=== PATIENT | female | born 1945 | race Asian ===

== ENCOUNTER 2024-09-21 19:15 | Emergency (ER) | payer MEDICARE, OTHER ==
[~2024-09-21] VITALS: Ht 157.5 cm; Wt 56.7 kg
[2024-09-21] MEDS ORDERED: AZIT250T13 PO (21:10)
[2024-09-21] MEDS ORDERED: AZITHROMYCIN 250 MG TABLET ONE (21:10)
[2024-09-21] MEDS: AZITHROMYCIN 250 MG TABLET PO ONE (21:11)
[2024-09-22 00:26] VITALS: BP 119/69; TEMP 98.1; O2SAT 97
== END 2024-09-22 00:34 ==
LOC: ER 19:28 → EDBD 19:28 → ER 09-22 00:34
DX: R05.9 Cough, unspecified (principal); I11.0 Hypertensive heart disease with heart failure; I50.9 Heart failure, unspecified
CPT/HCPCS: 71045-TC

== ENCOUNTER 2024-10-04 08:38 | Inpatient (IN) | payer MEDICARE, OTHER ==
[~2024-10-04] VITALS: Ht 152.4 cm; Wt 53.1 kg
[2024-10-04] VITALS (7 sets, daily range): BP systolic 99–121; BP diastolic 71–84; TEMP 98.1–98.2; O2SAT 91–100
[~2024-10-04 08:38] MED LIST: AZIT250T13 PO
[2024-10-04] MEDS: IV NS 0.9% 1,000 ML BAG IV ONE (09:00)
[2024-10-04] MEDS: CEFEPIME 1 GM in IV D5W 50 ML IV ONE (09:10)
[2024-10-04 09:20] LABS: BASOPHILS % (AUTO) 0.5 % (0.0-2.0); EOSINOPHILS # (AUTO) 0.1 K/uL (0.0-0.7); HEMATOCRIT 37 % (33-45); HEMOGLOBIN 12.1 g/dL (11.5-14.8); LYMPHOCYTES # (AUTO) 0.6 K/uL (0.8-4.8); LYMPHOCYTES % (AUTO) 8.6 % (20.0-44.0); MEAN CORPUSCULAR HEMOGLOBIN 31 PG (26.0-33.0); MEAN CORPUSCULAR HGB CONC 32 g/dl (31.0-36.0); MEAN CORPUSCULAR VOLUME 95 fL (82-100); MONOCYTES # (AUTO) 0.6 K/uL (0.1-1.30); MONOCYTES % (AUTO) 8.2 % (2.0-12.0); NEUTROPHILS # (AUTO) 5.6 K/uL (1.8-8.9); NEUTROPHILS % (AUTO) 81.7 % (43.0-81.0); PLATELET COUNT (AUTO) 233 K/uL (150-450); RED BLOOD CELL COUNT(AUTO) 3.92 MIL/uL (4.0-5.2); RED CELL DISTRIBUTION WIDTH 14.2 % (11.5-15.0); WHITE BLOOD COUNT (AUTO) 6.8 K/uL (4.3-11.0)
[2024-10-04 09:22] LABS: CALCIUM, SERUM 8.8 mg/dL (8.5-10.1); CARBON DIOXIDE 35 mmol/L (21-32); CHLORIDE 101 mmol/L (98-107); CREATININE 0.5 mg/dL (0.6-1.3); GLUCOSE 134 mg/dL (74-106); POTASSIUM 3.8 mmol/L (3.5-5.1); SODIUM SERUM 140 mmol/L (136-145); UREA NITROGEN, BLOOD 22 mg/dL (7-18)
[2024-10-04 09:24] LABS: INR 1.04 (0.91-1.10); PARTIAL THROMBOPLASTIN TIME 25.9 SEC (24.3-34.3)
[2024-10-04 09:31] LABS: LACTIC ACID 1.3 mmol/L (0.4-2.0)
[2024-10-04 09:32] LABS: APPEARANCE,URINE CLEAR (CLEAR); BILIRUBIN,URINE NEGATIVE (NEGATIVE); BLOOD, URINE NEGATIVE Ery/uL (NEGATIVE); COLOR,URINE YELLOW (YELLOW); KETONES,URINE NEGATIVE (NEGATIVE); LEUKOCYTE ESTERASE ,URINE NEGATIVE (NEGATIVE); NITRITE, URINE NEGATIVE (NEGATIVE); PROTEIN,URINE TRACE mg/dl (NEGATIVE); UGLUCOSE NEGATIVE (NEGATIVE); UROBILINOGEN,URINE 0.2 EU/dL (0.2)
[2024-10-04 09:39] LABS: ALANINE AMINOTRANSFERASE 50 U/L (12-78); ALBUMIN 2.5 g/dL (3.4-5.0); ALKALINE PHOSPHATASE 103 U/L (46-116); ASPARTATE AMINOTRANSFERASE 40 U/L (15-37); BILIRUBIN,DIRECT 0.1 mg/dL (0.0-0.2); BILIRUBIN,TOTAL 0.4 mg/dL (0.2-1.0); NT-PRO BNP 1335 pg/mL (0-125); TOTAL PROTEIN, SERUM 6.1 g/dL (6.4-8.2)
[2024-10-04] MEDS ORDERED: IOHEXOL-350 100 ML VIAL IV ONE (09:54)
[2024-10-04] MEDS ORDERED: IV NS 0.9% 250 ML IV ONE (09:54)
[2024-10-04] MEDS ORDERED: CT SWABBABLE VALVE TRANS SET 1 EA INFUS.SET MC ONE (09:54)
[2024-10-04 10:04] LABS: ADD URINE CULTURE NO; BACTERIA,URINE Rare /HPF (None Seen); WBC,URINE 0-2 /HPF (0-3)
[2024-10-04 10:05] LABS: SQUAMOUS EPITHELIAL CELL,UR 0-2 /HPF (None Seen)
[2024-10-04] MEDS ORDERED: BISA10SU11 RC (12:28)
[2024-10-04] MEDS ORDERED: ATOR80TA PO (12:28)
[2024-10-04] MEDS ORDERED: ACET325T53 PO (12:28)
[2024-10-04] MEDS ORDERED: ACET-73 PO (12:28)
[2024-10-04] MEDS ORDERED: IPRA3AMP23 IH (12:28)
[2024-10-04] MEDS ORDERED: MAGN400O6 PO (12:28)
[2024-10-04] MEDS ORDERED: ASPI-1420 PO (12:28)
[2024-10-04] MEDS ORDERED: LEVO750T46 PO (12:28)
[2024-10-04] MEDS: IV NS 0.9% 1,000 ML IV PRN (12:58)
[2024-10-04] MEDS ORDERED: ONDANSETRON HCL/PF 4 MG/2 ML VIAL IVP PRN (13:00)
[2024-10-04] MEDS ORDERED: MAG HYDROX/AL HYDROX/SIMETH 30 ML UDC PO PRN (13:00)
[2024-10-04] MEDS ORDERED: ZOLPIDEM TARTRATE 5 MG TABLET PO PRN (13:00)
[2024-10-04] MEDS ORDERED: MAGNESIUM HYDROXIDE 30 ML UDC PO PRN (13:00)
[2024-10-04] MEDS: MEROPENEM 500 MG in IV NS 0.9% 50 ML IV SCH (13:19)
[2024-10-04] MEDS: ENOXAPARIN SODIUM 40 MG/0.4 ML DISP.SYRIN SQ SCH (13:20)
[2024-10-04] MEDS: VANCOMYCIN HCL 1.25 GM in IV D5W 250 ML IV ONE (14:10)
[2024-10-04] MEDS: ACETAMINOPHEN 325 MG TABLET PO PRN (17:30)
[2024-10-04] MEDS: IPRATROPIUM NEB FS 0.5 MG/2.5 ML AMPUL.NEB NEB PRN (20:01)
[2024-10-04] MEDS: ALBUTEROL FS 2.5 MG/0.5 ML VIAL.NEB NEB PRN (20:01)
[2024-10-05] VITALS (10 sets, daily range): BP systolic 109–130; BP diastolic 73–87; TEMP 97.7–98.4; O2SAT 95–100
[2024-10-05] MEDS: VANCOMYCIN 750 MG in IV D5W 250 ML IV SCH (01:23)
[2024-10-05 07:45] LABS: BASOPHILS % (AUTO) 0.5 % (0.0-2.0); EOSINOPHILS # (AUTO) 0.1 K/uL (0.0-0.7); EOSINOPHILS % (AUTO) 1.5 % (0.0-6.0); HEMATOCRIT 34 % (33-45); HEMOGLOBIN 11.2 g/dL (11.5-14.8); LYMPHOCYTES # (AUTO) 0.6 K/uL (0.8-4.8); MEAN CORPUSCULAR HEMOGLOBIN 31 PG (26.0-33.0); MEAN CORPUSCULAR HGB CONC 33 g/dl (31.0-36.0); MEAN CORPUSCULAR VOLUME 94 fL (82-100); MONOCYTES # (AUTO) 0.6 K/uL (0.1-1.30); MONOCYTES % (AUTO) 10.8 % (2.0-12.0); NEUTROPHILS # (AUTO) 4.5 K/uL (1.8-8.9); NEUTROPHILS % (AUTO) 77.2 % (43.0-81.0); PLATELET COUNT (AUTO) 243 K/uL (150-450); RED BLOOD CELL COUNT(AUTO) 3.63 MIL/uL (4.0-5.2); RED CELL DISTRIBUTION WIDTH 13.9 % (11.5-15.0); WHITE BLOOD COUNT (AUTO) 5.9 K/uL (4.3-11.0)
[2024-10-05 07:56] LABS: ABG PCO2 50.3 mmHg (32.0-45.0); ABG PH 7.404 (7.350-7.450); ABG PO2 101.2 mmHg (83.0-108.0); ABG TOTAL HEMOGLOBIN 11.7 G/dL (12.0-16.0); COHb 0.2 % (0.5-1.5); MetHb 0.2 % (0.0-1.5); O2Hb 96.6 % (94.0-97.0); SITE, ABG RIGHT RADIAL
[2024-10-05 07:57] LABS: CALCIUM, SERUM 8.3 mg/dL (8.5-10.1); CREATININE 0.3 mg/dL (0.6-1.3); MAGNESIUM 1.9 mg/dL (1.8-2.4); PHOSPHORUS 2.7 mg/dL (2.5-4.9); POTASSIUM 3.8 mmol/L (3.5-5.1)
[2024-10-05] MEDS: PANTOPRAZOLE 40 MG TABLET.DR PO SCH (08:16)
[2024-10-05 08:20] LABS: THYROID STIMULATING HORMONE 7.2 uIU/mL (0.358-3.74)
[2024-10-05] MEDS: MEROPENEM 1 G in IV NS 0.9% 100 ML IV SCH (16:54)
[2024-10-06] VITALS (8 sets, daily range): BP systolic 122–146; BP diastolic 80–89; TEMP 97.7–98.6; O2SAT 93–100
[2024-10-06 08:13] LABS: BASOPHILS % (AUTO) 0.6 % (0.0-2.0); EOSINOPHILS # (AUTO) 0.1 K/uL (0.0-0.7); EOSINOPHILS % (AUTO) 1.1 % (0.0-6.0); HEMATOCRIT 35 % (33-45); HEMOGLOBIN 11.6 g/dL (11.5-14.8); LYMPHOCYTES # (AUTO) 0.5 K/uL (0.8-4.8); LYMPHOCYTES % (AUTO) 7.4 % (20.0-44.0); MEAN CORPUSCULAR HEMOGLOBIN 31 PG (26.0-33.0); MEAN CORPUSCULAR HGB CONC 33 g/dl (31.0-36.0); MEAN CORPUSCULAR VOLUME 94 fL (82-100); MONOCYTES # (AUTO) 0.7 K/uL (0.1-1.30); MONOCYTES % (AUTO) 10.7 % (2.0-12.0); NEUTROPHILS # (AUTO) 5.2 K/uL (1.8-8.9); NEUTROPHILS % (AUTO) 80.2 % (43.0-81.0); PLATELET COUNT (AUTO) 251 K/uL (150-450); RED BLOOD CELL COUNT(AUTO) 3.75 MIL/uL (4.0-5.2); RED CELL DISTRIBUTION WIDTH 13.9 % (11.5-15.0); WHITE BLOOD COUNT (AUTO) 6.5 K/uL (4.3-11.0)
[2024-10-06 08:34] LABS: ALBUMIN 2.4 g/dL (3.4-5.0); BILIRUBIN,TOTAL 0.4 mg/dL (0.2-1.0); CALCIUM, SERUM 8.5 mg/dL (8.5-10.1); CREATININE 0.3 mg/dL (0.6-1.3); MAGNESIUM 1.7 mg/dL (1.8-2.4); PHOSPHORUS 2.4 mg/dL (2.5-4.9); POTASSIUM 3.6 mmol/L (3.5-5.1); TOTAL PROTEIN, SERUM 5.9 g/dL (6.4-8.2)
[2024-10-06] MEDS: Z GUARD REMEDY 4 OZ OINT TP PRN (12:34)
[2024-10-06] MEDS: MAGNESIUM OXIDE 400 MG TABLET PO ONE (12:34)
[2024-10-06] MEDS: NEUTRA PHOS 1 POWD.PACKET PO ONE (17:11)
[2024-10-06] MEDS: VANCOMYCIN 750 MG in IV D5W 250 ML IV SCH (20:24)
[2024-10-07] VITALS: BP 131/84; TEMP 98.1; O2SAT 100
[2024-10-07 04:00] VITALS: BP 144/87; TEMP 97.9; O2SAT 95
[2024-10-07 07:35] LABS: BASOPHILS % (AUTO) 0.7 % (0.0-2.0); EOSINOPHILS # (AUTO) 0.1 K/uL (0.0-0.7); EOSINOPHILS % (AUTO) 1.2 % (0.0-6.0); HEMATOCRIT 35 % (33-45); HEMOGLOBIN 11.3 g/dL (11.5-14.8); LYMPHOCYTES # (AUTO) 0.5 K/uL (0.8-4.8); LYMPHOCYTES % (AUTO) 8.4 % (20.0-44.0); MEAN CORPUSCULAR HEMOGLOBIN 30 PG (26.0-33.0); MEAN CORPUSCULAR HGB CONC 32 g/dl (31.0-36.0); MEAN CORPUSCULAR VOLUME 95 fL (82-100); MONOCYTES # (AUTO) 0.5 K/uL (0.1-1.30); MONOCYTES % (AUTO) 8.7 % (2.0-12.0); NEUTROPHILS # (AUTO) 4.9 K/uL (1.8-8.9); PLATELET COUNT (AUTO) 251 K/uL (150-450); RED BLOOD CELL COUNT(AUTO) 3.72 MIL/uL (4.0-5.2); RED CELL DISTRIBUTION WIDTH 13.9 % (11.5-15.0)
[2024-10-07 07:47] LABS: CALCIUM, SERUM 8.3 mg/dL (8.5-10.1); CREATININE 0.3 mg/dL (0.6-1.3); POTASSIUM 3.7 mmol/L (3.5-5.1)
[2024-10-07 08:00] VITALS: BP 140/87; TEMP 97.9; O2SAT 100
[2024-10-07 12:00] VITALS: BP 118/74; TEMP 97.9; O2SAT 94
[2024-10-07] MEDS ORDERED: NEUTRA PHOS 1 POWD.PACKET PO ONE (16:00)
[2024-10-08] MEDS ORDERED: MERO1VIA23 IV (08:30)
[2024-10-08] MEDS ORDERED: VANC500V IV (08:30)
== END 2024-10-07 17:35 | DRG 177 ==
LOC: ER 08:43 → TELE1 10:56 → TELE-TD 12:16 → TELE1 10-05 09:14
DX: J15.69 Pneumonia due to other Gram-negative bacteria (principal); I21.A1 Myocardial infarction type 2; J96.01 Acute respiratory failure with hypoxia; E44.0 Moderate protein-calorie malnutrition; I11.0 Hypertensive heart disease with heart failure; I50.9 Heart failure, unspecified; F03.90 Unspecified dementia, unspecified severity, without behavioral disturbance, psychotic disturbance, mood disturbance, and anxiety; F09 Unspecified mental disorder due to known physiological condition; E88.09 Other disorders of plasma-protein metabolism, not elsewhere classified; R79.89 Other specified abnormal findings of blood chemistry; Z79.51 Long term (current) use of inhaled steroids; Z79.82 Long term (current) use of aspirin; Z79.899 Other long term (current) drug therapy
CPT/HCPCS: 36415; 71045-TC; 80048-TC; 80053-TC; 80061-TC; 80076-TC; 80202-TC; 81001; 83605-TC; 83735-TC; 83880; 84100-TC; 84443-TC; 84484-TC; 85025-TC; 85730-TC; 87040-TC; 87081-TC; 87086-TC; 92526; 92611-TC; 93307-TC; 94760-TC; 94799-TC; 97110-TC; 97116-TC; 97530-TC; A4223; G0378; J0692; J1650; J2185; J3371; J3490; J7030; J7050; J7060; Q9967

== ENCOUNTER 2024-10-10 06:01 | Inpatient (IN) | payer MEDICARE, OTHER ==
[2024-10-10] VITALS (11 sets, daily range): BP systolic 108–109; BP diastolic 74–80; TEMP 97.7–98.3; O2SAT 94–100
[~2024-10-10] VITALS: Ht 157.5 cm; Wt 59.0 kg
[~2024-10-10 06:01] MED LIST changes: +ACET-73 PO; +ACET325T53 PO; +ASPI-1420 PO; +ATOR80TA PO; -AZIT250T13 PO; +BISA10SU11 RC; +IPRA3AMP23 IH; +LEVO750T46 PO; +MAGN400O6 PO; +MERO1VIA23 IV; +VANC500V IV
[2024-10-10] MEDS: IV NS 0.9% 500 ML IV ONE (06:26)
[2024-10-10] MEDS ORDERED: predniSONE 20 MG TABLET ONE (06:26)
[2024-10-10] MEDS: predniSONE 20 MG TABLET PO ONE (06:26)
[2024-10-10] MEDS: IPRATROPIUM NEB FS 0.5 MG/2.5 ML AMPUL.NEB NEB ONE (06:29)
[2024-10-10] MEDS: ALBUTEROL FS 2.5 MG/3 ML VIAL.NEB NEB ONE (06:29)
[2024-10-10] MEDS ORDERED: IPRATROPIUM NEB FS 0.5 MG/2.5 ML AMPUL.NEB ONE (06:33)
[2024-10-10] MEDS ORDERED: ALBUTEROL FS 2.5 MG/3 ML VIAL.NEB ONE (06:33)
[2024-10-10 06:44] LABS: BASOPHILS % (AUTO) 0.7 % (0.0-2.0); EOSINOPHILS # (AUTO) 0.1 K/uL (0.0-0.7); EOSINOPHILS % (AUTO) 0.8 % (0.0-6.0); HEMATOCRIT 40 % (33-45); HEMOGLOBIN 13.1 g/dL (11.5-14.8); LYMPHOCYTES # (AUTO) 0.8 K/uL (0.8-4.8); LYMPHOCYTES % (AUTO) 11.6 % (20.0-44.0); MEAN CORPUSCULAR HEMOGLOBIN 31 PG (26.0-33.0); MEAN CORPUSCULAR HGB CONC 33 g/dl (31.0-36.0); MEAN CORPUSCULAR VOLUME 95 fL (82-100); MONOCYTES # (AUTO) 0.4 K/uL (0.1-1.30); MONOCYTES % (AUTO) 6.3 % (2.0-12.0); NEUTROPHILS # (AUTO) 5.4 K/uL (1.8-8.9); NEUTROPHILS % (AUTO) 80.6 % (43.0-81.0); PLATELET COUNT (AUTO) 322 K/uL (150-450); RED BLOOD CELL COUNT(AUTO) 4.25 MIL/uL (4.0-5.2); RED CELL DISTRIBUTION WIDTH 14.3 % (11.5-15.0); WHITE BLOOD COUNT (AUTO) 6.7 K/uL (4.3-11.0)
[2024-10-10 06:45] LABS: APPEARANCE,URINE SLIGHTLY CLOUDY (CLEAR); BILIRUBIN,URINE NEGATIVE (NEGATIVE); BLOOD, URINE 3+ Ery/uL (NEGATIVE); COLOR,URINE YELLOW (YELLOW); KETONES,URINE 1+ mg/dL (NEGATIVE); LEUKOCYTE ESTERASE ,URINE NEGATIVE (NEGATIVE); NITRITE, URINE NEGATIVE (NEGATIVE); PROTEIN,URINE 1+ mg/dl (NEGATIVE); UGLUCOSE NEGATIVE (NEGATIVE); UROBILINOGEN,URINE 0.2 EU/dL (0.2)
[2024-10-10 06:55] LABS: CALCIUM, SERUM 9.1 mg/dL (8.5-10.1); CARBON DIOXIDE 34 mmol/L (21-32); CHLORIDE 103 mmol/L (98-107); CREATININE 0.4 mg/dL (0.6-1.3); GLUCOSE 85 mg/dL (74-106); POTASSIUM 3.6 mmol/L (3.5-5.1); SODIUM SERUM 140 mmol/L (136-145); UREA NITROGEN, BLOOD 20 mg/dL (7-18)
[2024-10-10 06:57] LABS: ADD URINE CULTURE YES; BACTERIA,URINE Few /HPF (None Seen); RBC,URINE 81-100 /HPF (0-2)
[2024-10-10 06:58] LABS: CALCIUM OXALATE CRYSTALS,UR Few /HPF (None Seen); YEAST,URINE Moderate /HPF (None Seen)
[2024-10-10 07:09] LABS: NT-PRO BNP 741 pg/mL (0-125)
[2024-10-10] MEDS ORDERED: ASPIRIN EC 325 MG TABLET.DR PO ONE (07:33)
[2024-10-10] MEDS ORDERED: MORPHINE SULFATE INJ 4 MG/ML DISP.SYRIN ONE (07:33)
[2024-10-10] MEDS: MORPHINE SULFATE INJ 2 MG/ML DISP.SYRIN IV ONE (07:44)
[2024-10-10] MEDS: ASPIRIN EC 325 MG TABLET.DR PO ONE (07:45)
[2024-10-10] MEDS: CEFEPIME 1 GM in IV D5W 50 ML IV ONE (07:47)
[2024-10-10] MEDS ORDERED: PANT40TA49 PO (08:30)
[2024-10-10] MEDS ORDERED: ENOX40DI SQ (08:30)
[2024-10-10] MEDS ORDERED: IOHEXOL-350 100 ML VIAL IV ONE (08:32)
[2024-10-10] MEDS ORDERED: IV NS 0.9% 250 ML IV ONE (08:32)
[2024-10-10] MEDS ORDERED: CT SWABBABLE VALVE TRANS SET 1 EA INFUS.SET MC ONE (08:32)
[2024-10-10] MEDS ORDERED: BISACODYL SUPP (10 MG) 10 MG/SUPP.RECT SUPP.RECT RC PRN (09:00)
[2024-10-10] MEDS ORDERED: ACETAMINOPHEN 325 MG TABLET PO PRN (09:00)
[2024-10-10] MEDS ORDERED: hydrALAZINE HCL IV 20 MG VIAL IV PRN (09:00)
[2024-10-10] MEDS ORDERED: MAGNESIUM HYDROXIDE 30 ML UDC PO PRN (09:00)
[2024-10-10] MEDS ORDERED: ONDANSETRON HCL/PF 4 MG/2 ML VIAL IVP PRN (09:00)
[2024-10-10] MEDS ORDERED: MORPHINE SULFATE INJ 2 MG/ML DISP.SYRIN IV PRN (09:00)
[2024-10-10] MEDS ORDERED: ALBUTEROL FS 2.5 MG/0.5 ML VIAL.NEB NEB PRN (09:00)
[2024-10-10] MEDS: HEPARIN SODIUM, PORCINE 5000 UNITS/1 ML VIAL SQ SCH (12:16)
[2024-10-10] MEDS: VANCOMYCIN 1 GM in IV D5W 250ml IV ONE (12:25)
[2024-10-10] MEDS: IPRATROPIUM NEB FS 0.5 MG/2.5 ML AMPUL.NEB IH SCH (12:56)
[2024-10-10] MEDS: ALBUTEROL FS 2.5 MG/3 ML VIAL.NEB NEB SCH (12:56)
[2024-10-10] MEDS: ASPIRIN EC 81 MG TABLET.DR PO SCH (13:37)
[2024-10-10] MEDS: POLYETHYLENE GLYCOL 3350 17 GM POWD.PACK PO SCH (13:37)
[2024-10-10] MEDS: DOCUSATE SODIUM LIQ 100 MG/10 ML UDC PO SCH (13:37)
[2024-10-10] MEDS: PANTOPRAZOLE 40 MG TABLET.DR PO SCH (13:37)
[2024-10-10] MEDS: VANCOMYCIN 500 MG in IV D5W 100ml IV ONE (13:37)
[2024-10-10 13:57] LABS: INR 0.98 (0.91-1.10); PROTHROMBIN TIME 10.4 SECS (9.2-11.1)
[2024-10-10] MEDS: LEVOFLOXACIN 750 MG /D5W 150ML 750 MG in PREMIX 1 EA IV SCH (14:28)
[2024-10-10] MEDS: MEROPENEM 1 G in IV NS 0.9% 100 ML IV SCH (16:24)
[2024-10-10 18:11] LABS: PROTEIN, BODY FLUID 2.9 G/DL
[2024-10-10] MEDS: VANCOMYCIN 750 MG in IV D5W 250 ML IV SCH (20:03)
[2024-10-10 21:55] LABS: APPEARANCE,SPUN,BODY FLUID CLEAR (CLEAR)
[2024-10-10 21:56] LABS: MONOCYTES,BODY FLUID 4 %; POLYNUCLEAR, BODY FLUID 10 % (0-25); TOTAL VOLUME,BODY FLUID 900 mL; WBC, BODY FLUID 136 /cu. mm. (0-200)
[2024-10-10] MEDS: ATORVASTATIN 40 MG TABLET PO SCH (22:35)
[2024-10-11] VITALS (12 sets, daily range): BP systolic 100–127; BP diastolic 63–79; TEMP 97.7–98.1; O2SAT 96–100
[2024-10-11 05:37] LABS: ABG BASE EXCESS 5.7 mmol/L (-2.0-3.0); ABG OXYGEN SATURATION 95.5 % (94.0-98.0); ABG PCO2 49.7 mmHg (32.0-45.0); ABG PH 7.415 (7.350-7.450); ABG PO2 79.3 mmHg (83.0-108.0); ABG TOTAL HEMOGLOBIN 11.2 G/dL (12.0-16.0); O2Hb 95.5 % (94.0-97.0); SITE, ABG RIGHT RADIAL
[2024-10-11 06:27] LABS: BASOPHILS % (AUTO) 0.3 % (0.0-2.0); EOSINOPHILS % (AUTO) 0.6 % (0.0-6.0); HEMATOCRIT 32 % (33-45); HEMOGLOBIN 10.6 g/dL (11.5-14.8); LYMPHOCYTES # (AUTO) 0.6 K/uL (0.8-4.8); LYMPHOCYTES % (AUTO) 8.1 % (20.0-44.0); MEAN CORPUSCULAR HEMOGLOBIN 31 PG (26.0-33.0); MEAN CORPUSCULAR HGB CONC 33 g/dl (31.0-36.0); MEAN CORPUSCULAR VOLUME 95 fL (82-100); MONOCYTES # (AUTO) 0.7 K/uL (0.1-1.30); MONOCYTES % (AUTO) 10.1 % (2.0-12.0); NEUTROPHILS # (AUTO) 5.6 K/uL (1.8-8.9); NEUTROPHILS % (AUTO) 80.9 % (43.0-81.0); PLATELET COUNT (AUTO) 262 K/uL (150-450); RED CELL DISTRIBUTION WIDTH 14.2 % (11.5-15.0); WHITE BLOOD COUNT (AUTO) 6.9 K/uL (4.3-11.0)
[2024-10-11 06:35] LABS: ALBUMIN 2.1 g/dL (3.4-5.0); BILIRUBIN,TOTAL 0.3 mg/dL (0.2-1.0); CALCIUM, SERUM 8.2 mg/dL (8.5-10.1); CREATININE 0.3 mg/dL (0.6-1.3); PHOSPHORUS 2.5 mg/dL (2.5-4.9); POTASSIUM 3.8 mmol/L (3.5-5.1); TOTAL PROTEIN, SERUM 5.4 g/dL (6.4-8.2)
[2024-10-11 20:38] LABS: PROTEIN, BODY FLUID 2.5 G/DL
[2024-10-12] VITALS (13 sets, daily range): BP systolic 107–138; BP diastolic 72–86; TEMP 97.7–98.2; O2SAT 92–100
[2024-10-12 02:53] LABS: APPEARANCE,SPUN,BODY FLUID CLEAR (CLEAR)
[2024-10-12 02:57] LABS: TOTAL VOLUME,BODY FLUID 1100 mL; WBC, BODY FLUID 154 /cu. mm. (0-200)
[2024-10-12 03:14] LABS: MACROPHAGES, BODY FLUID 10
[2024-10-12 03:15] LABS: POLYNUCLEAR, BODY FLUID 10 % (0-25)
[2024-10-12 07:37] LABS: CALCIUM, SERUM 8.4 mg/dL (8.5-10.1); CREATININE 0.4 mg/dL (0.6-1.3); POTASSIUM 3.9 mmol/L (3.5-5.1)
[2024-10-13] VITALS (11 sets, daily range): BP systolic 122–139; BP diastolic 80–90; TEMP 97.5–97.7; O2SAT 85–99
[2024-10-13 07:06] LABS: CALCIUM, SERUM 8.3 mg/dL (8.5-10.1); CREATININE 0.4 mg/dL (0.6-1.3); POTASSIUM 3.8 mmol/L (3.5-5.1)
[2024-10-13] MEDS: FLUCONAZOLE (100 MG) 100 MG TABLET PO SCH (10:44)
[2024-10-13 23:06] LABS: *MYCOPLASMA PNEUMONIAE IgG 1300 U/mL (0-99); *MYCOPLASMA PNEUMONIAE IgM <770 U/mL (0-769)
[2024-10-14] VITALS (12 sets, daily range): BP systolic 108–127; BP diastolic 79–85; TEMP 98.2; O2SAT 91–96
[2024-10-14 07:14] LABS: CALCIUM, SERUM 8.7 mg/dL (8.5-10.1); CREATININE 0.3 mg/dL (0.6-1.3); POTASSIUM 3.9 mmol/L (3.5-5.1)
[2024-10-14] MEDS ORDERED: IOHEXOL-350 100 ML VIAL IV ONE (09:43)
[2024-10-14] MEDS ORDERED: CT SWABBABLE VALVE TRANS SET 1 EA INFUS.SET MC ONE (09:43)
[2024-10-14] MEDS ORDERED: IV NS 0.9% 250 ML IV ONE (09:43)
[2024-10-14] MEDS: LEVOFLOXACIN (250MG) 250 MG TABLET PO SCH (12:02)
[2024-10-15] VITALS (10 sets, daily range): BP systolic 118–138; BP diastolic 78–85; TEMP 97.5–98.1; O2SAT 93–98
[2024-10-15 06:50] LABS: CALCIUM, SERUM 8.5 mg/dL (8.5-10.1); CREATININE 0.4 mg/dL (0.6-1.3); POTASSIUM 4.3 mmol/L (3.5-5.1)
== END 2024-10-15 16:35 | DRG 177 ==
LOC: ER 06:04 → TELE 10:10 → MED 10-12 11:18
PROVIDERS: ADMIT Internal Medicine; ATTEND Nurse Practitioner Acute Care
PROC: 0W993ZX Drainage of Right Pleural Cavity, Percutaneous Approach, Diagnostic (ICD-10-PCS; principal; 2024-10-10)
PROC: 0W9B3ZX Drainage of Left Pleural Cavity, Percutaneous Approach, Diagnostic (ICD-10-PCS; 2024-10-11)
DX: J15.69 Pneumonia due to other Gram-negative bacteria (principal); I21.A1 Myocardial infarction type 2; J96.01 Acute respiratory failure with hypoxia; E44.0 Moderate protein-calorie malnutrition; J44.0 Chronic obstructive pulmonary disease with (acute) lower respiratory infection; J44.1 Chronic obstructive pulmonary disease with (acute) exacerbation; E87.29 Other acidosis; J90 Pleural effusion, not elsewhere classified; B37.49 Other urogenital candidiasis; J15.7 Pneumonia due to Mycoplasma pneumoniae; Z20.822 Contact with and (suspected) exposure to COVID-19; I11.0 Hypertensive heart disease with heart failure; I50.9 Heart failure, unspecified; Z85.118 Personal history of other malignant neoplasm of bronchus and lung; Z79.01 Long term (current) use of anticoagulants; Z79.82 Long term (current) use of aspirin; Z79.51 Long term (current) use of inhaled steroids; Z79.899 Other long term (current) drug therapy; E88.09 Other disorders of plasma-protein metabolism, not elsewhere classified; R79.89 Other specified abnormal findings of blood chemistry; F09 Unspecified mental disorder due to known physiological condition; F03.90 Unspecified dementia, unspecified severity, without behavioral disturbance, psychotic disturbance, mood disturbance, and anxiety; Z87.891 Personal history of nicotine dependence
CPT/HCPCS: 36415; 36600; 71045-TC; 80048-TC; 80053-TC; 80202-TC; 81001; 82803-TC; 83605-TC; 83735-TC; 83880; 84100-TC; 84484-TC; 85025-TC; 85378-TC; 85610-TC; 86713; 86738; 87040-TC; 87081-TC; 87086-TC; 87102-TC; 89051-TC; 94760-TC; 94761-TC; 94762-TC; 94799-TC; 97110-TC; 97116-TC; 97530-TC; A4216; A4223; G0378; J0692; J1956; J2185; J2270; J3370; J3371; J7030; J7040; J7050; J7060; Q9967

== ENCOUNTER 2024-10-22 07:08 | Inpatient (IN) | payer MEDICARE, OTHER ==
[2024-10-22] VITALS (15 sets, daily range): BP systolic 102–128; BP diastolic 69–88; TEMP 97.5–97.7; O2SAT 93–100
[~2024-10-22] VITALS: Ht 160 cm; Wt 45.4 kg
[~2024-10-22 07:08] MED LIST changes: +ENOX40DI SQ; -LEVO750T46 PO; +PANT40TA49 PO
[2024-10-22] MEDS ORDERED: ALBUTEROL FS 2.5 MG/3 ML VIAL.NEB ONE (07:31)
[2024-10-22] MEDS ORDERED: IPRATROPIUM NEB FS 0.5 MG/2.5 ML AMPUL.NEB ONE (07:31)
[2024-10-22] MEDS ORDERED: methylPREDNISolone SOD SUCC 125 MG/2ML VIAL ONE (07:34)
[2024-10-22] MEDS: ALBUTEROL FS 2.5 MG/3 ML VIAL.NEB CONTNEB ONE (07:34)
[2024-10-22] MEDS ORDERED: ONDANSETRON HCL/PF 4 MG/2 ML VIAL ONE (07:34)
[2024-10-22] MEDS: IPRATROPIUM NEB FS 0.5 MG/2.5 ML AMPUL.NEB NEB ONE (07:34)
[2024-10-22] MEDS: methylPREDNISolone SOD SUCC 125 MG/2ML VIAL IV ONE (07:50)
[2024-10-22] MEDS: PIPERACILLIN /TAZOBACTAM 3.375 G in IV D5W 50 ML IV ONE (07:51)
[2024-10-22] MEDS: ONDANSETRON HCL/PF - ER 4 MG/2 ML VIAL IV ONE (07:51)
[2024-10-22 07:55] LABS: BASOPHILS % (AUTO) 0.1 % (0.0-2.0); HEMATOCRIT 35 % (33-45); HEMOGLOBIN 11.8 g/dL (11.5-14.8); LYMPHOCYTES # (AUTO) 0.5 K/uL (0.8-4.8); LYMPHOCYTES % (AUTO) 5.4 % (20.0-44.0); MEAN CORPUSCULAR HEMOGLOBIN 32 PG (26.0-33.0); MEAN CORPUSCULAR HGB CONC 34 g/dl (31.0-36.0); MEAN CORPUSCULAR VOLUME 94 fL (82-100); MONOCYTES # (AUTO) 0.5 K/uL (0.1-1.30); MONOCYTES % (AUTO) 5.1 % (2.0-12.0); NEUTROPHILS # (AUTO) 8.9 K/uL (1.8-8.9); NEUTROPHILS % (AUTO) 89.4 % (43.0-81.0); PLATELET COUNT (AUTO) 300 K/uL (150-450); RED BLOOD CELL COUNT(AUTO) 3.74 MIL/uL (4.0-5.2); RED CELL DISTRIBUTION WIDTH 14.6 % (11.5-15.0); WHITE BLOOD COUNT (AUTO) 9.9 K/uL (4.3-11.0)
[2024-10-22] MEDS: IV NS 0.9% 1,000 ML BAG IV ONE (07:56)
[2024-10-22 08:00] LABS: CALCIUM, SERUM 8.8 mg/dL (8.5-10.1); CARBON DIOXIDE 30 mmol/L (21-32); CHLORIDE 102 mmol/L (98-107); CREATININE 0.5 mg/dL (0.6-1.3); GLUCOSE 117 mg/dL (74-106); POTASSIUM 3.9 mmol/L (3.5-5.1); SODIUM SERUM 141 mmol/L (136-145); UREA NITROGEN, BLOOD 34 mg/dL (7-18)
[2024-10-22 08:01] LABS: INR 1.02 (0.91-1.10); PARTIAL THROMBOPLASTIN TIME 28.1 SEC (24.3-34.3); PROTHROMBIN TIME 10.8 SECS (9.2-11.1)
[2024-10-22 08:06] LABS: ALANINE AMINOTRANSFERASE 18 U/L (12-78); ALKALINE PHOSPHATASE 151 U/L (46-116); ASPARTATE AMINOTRANSFERASE 35 U/L (15-37); BILIRUBIN,DIRECT 0.1 mg/dL (0.0-0.2); BILIRUBIN,TOTAL 0.6 mg/dL (0.2-1.0); TOTAL PROTEIN, SERUM 5.5 g/dL (6.4-8.2)
[2024-10-22 08:11] LABS: LACTIC ACID 1.9 mmol/L (0.4-2.0)
[2024-10-22 08:35] LABS: ABG BASE EXCESS 2.3 mmol/L (-2.0-3.0); ABG OXYGEN SATURATION 88.3 % (94.0-98.0); ABG PCO2 41.4 mmHg (32.0-45.0); ABG PO2 59.2 mmHg (83.0-108.0); ABG TOTAL HEMOGLOBIN 11.7 G/dL (12.0-16.0); COHb 0.3 % (0.5-1.5); MetHb 0.2 % (0.0-1.5); O2Hb 87.9 % (94.0-97.0); SITE, ABG LEFT RADIAL
[2024-10-22 09:06] LABS: APPEARANCE,URINE CLEAR (CLEAR); BILIRUBIN,URINE 1+ (NEGATIVE); BLOOD, URINE NEGATIVE Ery/uL (NEGATIVE); COLOR,URINE DARK YELLOW (YELLOW); KETONES,URINE 1+ mg/dL (NEGATIVE); LEUKOCYTE ESTERASE ,URINE NEGATIVE (NEGATIVE); NITRITE, URINE NEGATIVE (NEGATIVE); PROTEIN,URINE 1+ mg/dl (NEGATIVE); UGLUCOSE NEGATIVE (NEGATIVE); UROBILINOGEN,URINE 0.2 EU/dL (0.2)
[2024-10-22] MEDS ORDERED: ALBU2.5V38 IH (09:06)
[2024-10-22] MEDS ORDERED: DOCU100T2 PO (09:06)
[2024-10-22] MEDS ORDERED: POLY17PO4 PO (09:06)
[2024-10-22] MEDS ORDERED: MULT-447 PO (09:06)
[2024-10-22] MEDS ORDERED: LEVO750T46 PO (09:06)
[2024-10-22] MEDS ORDERED: ASCO-352 PO (09:07)
[2024-10-22] MEDS ORDERED: ZINC50TA69 PO (09:07)
[2024-10-22 09:21] LABS: ADD URINE CULTURE NO; BACTERIA,URINE Few /HPF (None Seen); RBC,URINE 0-2 /HPF (0-2); SQUAMOUS EPITHELIAL CELL,UR 0-2 /HPF (None Seen); WBC,URINE 0-2 /HPF (0-3)
[2024-10-22] MEDS ORDERED: ZOLPIDEM TARTRATE 5 MG TABLET PO PRN (10:00)
[2024-10-22] MEDS ORDERED: IPRATROPIUM NEB FS 0.5 MG/2.5 ML AMPUL.NEB NEB PRN (10:00)
[2024-10-22] MEDS ORDERED: ALBUTEROL FS 2.5 MG/0.5 ML VIAL.NEB NEB PRN (10:00)
[2024-10-22] MEDS ORDERED: MAGNESIUM HYDROXIDE 30 ML UDC PO PRN (10:00)
[2024-10-22] MEDS ORDERED: MAG HYDROX/AL HYDROX/SIMETH 30 ML UDC PO PRN (10:00)
[2024-10-22] MEDS ORDERED: Z GUARD REMEDY 4 OZ OINT TP PRN (10:00)
[2024-10-22] MEDS: PANTOPRAZOLE 80 MG in IV NS 0.9% 100 ML IV ONE (11:10)
[2024-10-22] MEDS: PANTOPRAZOLE 80 MG in IV NS 0.9% 500 ML IV ONE (11:30)
[2024-10-22] MEDS: ONDANSETRON HCL/PF 4 MG/2 ML VIAL IVP PRN (12:04)
[2024-10-22] MEDS: ENOXAPARIN SODIUM 40 MG/0.4 ML DISP.SYRIN SQ SCH (14:18)
[2024-10-22] MEDS: methylPREDNISolone SOD SUCC 40 MG/ML VIAL IV SCH (14:19)
[2024-10-22] MEDS: PIPERACILLIN /TAZOBACTAM 3.375 G in IV D5W 100 ML IV SCH (14:43)
[2024-10-22] MEDS: FUROSEMIDE 40 MG/4 ML VIAL IV ONE (14:43)
[2024-10-22] MEDS: PANTOPRAZOLE 40 MG VIAL IV SCH (21:30)
[2024-10-23] VITALS (24 sets, daily range): BP systolic 91–145; BP diastolic 42–123; TEMP 97.5–98.9; O2SAT 92–100
[2024-10-23 05:42] LABS: CALCIUM, SERUM 8.4 mg/dL (8.5-10.1); CARBON DIOXIDE 23 mmol/L (21-32); CHLORIDE 105 mmol/L (98-107); CREATININE 0.5 mg/dL (0.6-1.3); GLUCOSE 133 mg/dL (74-106); MAGNESIUM 2.1 mg/dL (1.8-2.4); PHOSPHORUS 3.6 mg/dL (2.5-4.9); POTASSIUM 4.1 mmol/L (3.5-5.1); SODIUM SERUM 138 mmol/L (136-145); UREA NITROGEN, BLOOD 43 mg/dL (7-18)
[2024-10-23 06:07] LABS: BASOPHILS % (AUTO) 0.1 % (0.0-2.0); EOSINOPHILS % (AUTO) 0.1 % (0.0-6.0); HEMATOCRIT 35 % (33-45); HEMOGLOBIN 11.1 g/dL (11.5-14.8); LYMPHOCYTES # (AUTO) 0.4 K/uL (0.8-4.8); LYMPHOCYTES % (AUTO) 4.3 % (20.0-44.0); MEAN CORPUSCULAR HEMOGLOBIN 32 PG (26.0-33.0); MEAN CORPUSCULAR HGB CONC 32 g/dl (31.0-36.0); MEAN CORPUSCULAR VOLUME 99 fL (82-100); MONOCYTES # (AUTO) 0.5 K/uL (0.1-1.30); MONOCYTES % (AUTO) 5.5 % (2.0-12.0); NEUTROPHILS # (AUTO) 7.6 K/uL (1.8-8.9); PLATELET COUNT (AUTO) 265 K/uL (150-450); RED BLOOD CELL COUNT(AUTO) 3.51 MIL/uL (4.0-5.2); RED CELL DISTRIBUTION WIDTH 14.8 % (11.5-15.0); WHITE BLOOD COUNT (AUTO) 8.5 K/uL (4.3-11.0)
[2024-10-23] MEDS ORDERED: PANTOPRAZOLE 40 MG TABLET.DR PO SCH (07:30)
[2024-10-23 08:21] LABS: ABG OXYGEN SATURATION 94.6 % (94.0-98.0); ABG PCO2 51.4 mmHg (32.0-45.0); ABG PH 7.369 (7.350-7.450); ABG PO2 78.1 mmHg (83.0-108.0); ABG TOTAL HEMOGLOBIN 10.6 G/dL (12.0-16.0); COHb 0.3 % (0.5-1.5); O2Hb 94.3 % (94.0-97.0); SITE, ABG RIGHT RADIAL
[2024-10-23] MEDS: FUROSEMIDE 40 MG/4 ML VIAL IV SCH (09:52)
[2024-10-24] VITALS (25 sets, daily range): BP systolic 93–150; BP diastolic 51–89; TEMP 98.2–98.8; O2SAT 92–100
[2024-10-24 05:08] LABS: CALCIUM, SERUM 8.3 mg/dL (8.5-10.1); CREATININE 0.4 mg/dL (0.6-1.3); MAGNESIUM 1.9 mg/dL (1.8-2.4); PHOSPHORUS 3.1 mg/dL (2.5-4.9); POTASSIUM 3.6 mmol/L (3.5-5.1)
[2024-10-24 05:21] LABS: HEMATOCRIT 31 % (33-45); HEMOGLOBIN 10.2 g/dL (11.5-14.8); LYMPHOCYTES # (AUTO) 0.3 K/uL (0.8-4.8); LYMPHOCYTES % (AUTO) 3.8 % (20.0-44.0); MEAN CORPUSCULAR HEMOGLOBIN 31 PG (26.0-33.0); MEAN CORPUSCULAR HGB CONC 33 g/dl (31.0-36.0); MEAN CORPUSCULAR VOLUME 94 fL (82-100); MONOCYTES # (AUTO) 0.4 K/uL (0.1-1.30); MONOCYTES % (AUTO) 5.8 % (2.0-12.0); NEUTROPHILS # (AUTO) 6.3 K/uL (1.8-8.9); NEUTROPHILS % (AUTO) 90.4 % (43.0-81.0); PLATELET COUNT (AUTO) 276 K/uL (150-450); RED CELL DISTRIBUTION WIDTH 14.2 % (11.5-15.0); WHITE BLOOD COUNT (AUTO) 6.9 K/uL (4.3-11.0)
[2024-10-24 10:05] LABS: ABG BASE EXCESS 7.1 mmol/L (-2.0-3.0); ABG OXYGEN SATURATION 94.3 % (94.0-98.0); ABG PCO2 50.3 mmHg (32.0-45.0); ABG PH 7.428 (7.350-7.450); ABG PO2 75.5 mmHg (83.0-108.0); COHb 0.3 % (0.5-1.5); MetHb 0.3 % (0.0-1.5); O2Hb 93.7 % (94.0-97.0); SITE, ABG LEFT BRACHIAL
[2024-10-24 13:41] LABS: PROTEIN, BODY FLUID 2.4 G/DL
[2024-10-24 14:14] LABS: APPEARANCE,SPUN,BODY FLUID CLEAR (CLEAR); TOTAL VOLUME,BODY FLUID 950 mL
[2024-10-24 19:28] LABS: MONOCYTES,BODY FLUID 3 %; WBC, BODY FLUID 305 /cu. mm. (0-200)
[2024-10-25] VITALS (25 sets, daily range): BP systolic 104–139; BP diastolic 65–103; TEMP 98.1–98.4; O2SAT 83–100
[2024-10-25 04:32] LABS: HEMATOCRIT 33 % (33-45); HEMOGLOBIN 10.8 g/dL (11.5-14.8); LYMPHOCYTES # (AUTO) 0.4 K/uL (0.8-4.8); LYMPHOCYTES % (AUTO) 5.5 % (20.0-44.0); MEAN CORPUSCULAR HEMOGLOBIN 31 PG (26.0-33.0); MEAN CORPUSCULAR HGB CONC 33 g/dl (31.0-36.0); MEAN CORPUSCULAR VOLUME 94 fL (82-100); MONOCYTES # (AUTO) 0.3 K/uL (0.1-1.30); MONOCYTES % (AUTO) 4.4 % (2.0-12.0); NEUTROPHILS # (AUTO) 6.8 K/uL (1.8-8.9); NEUTROPHILS % (AUTO) 90.1 % (43.0-81.0); PLATELET COUNT (AUTO) 291 K/uL (150-450); RED BLOOD CELL COUNT(AUTO) 3.46 MIL/uL (4.0-5.2); RED CELL DISTRIBUTION WIDTH 14.1 % (11.5-15.0); WHITE BLOOD COUNT (AUTO) 7.5 K/uL (4.3-11.0)
[2024-10-25 04:58] LABS: CALCIUM, SERUM 8.4 mg/dL (8.5-10.1); CREATININE 0.4 mg/dL (0.6-1.3); MAGNESIUM 1.9 mg/dL (1.8-2.4); PHOSPHORUS 2.5 mg/dL (2.5-4.9); POTASSIUM 3.5 mmol/L (3.5-5.1)
[2024-10-25] MEDS: ACETAMINOPHEN 325 MG TABLET PO PRN (16:14)
[2024-10-25] MEDS: ONDANSETRON HCL/PF 4 MG/2 ML VIAL IV ONE (23:34)
[2024-10-26] VITALS (28 sets, daily range): BP systolic 94–136; BP diastolic 66–106; TEMP 97.8–98.1; O2SAT 85–98
[2024-10-26 05:10] LABS: HEMATOCRIT 37 % (33-45); HEMOGLOBIN 12.4 g/dL (11.5-14.8); LYMPHOCYTES # (AUTO) 0.2 K/uL (0.8-4.8); MEAN CORPUSCULAR HEMOGLOBIN 32 PG (26.0-33.0); MEAN CORPUSCULAR HGB CONC 34 g/dl (31.0-36.0); MEAN CORPUSCULAR VOLUME 94 fL (82-100); MONOCYTES # (AUTO) 0.7 K/uL (0.1-1.30); MONOCYTES % (AUTO) 7.3 % (2.0-12.0); NEUTROPHILS # (AUTO) 9.2 K/uL (1.8-8.9); NEUTROPHILS % (AUTO) 90.7 % (43.0-81.0); PLATELET COUNT (AUTO) 312 K/uL (150-450); RED BLOOD CELL COUNT(AUTO) 3.93 MIL/uL (4.0-5.2); WHITE BLOOD COUNT (AUTO) 10.1 K/uL (4.3-11.0)
[2024-10-26 05:25] LABS: CALCIUM, SERUM 8.3 mg/dL (8.5-10.1); CREATININE 0.3 mg/dL (0.6-1.3); MAGNESIUM 1.9 mg/dL (1.8-2.4); PHOSPHORUS 2.7 mg/dL (2.5-4.9); POTASSIUM 3.6 mmol/L (3.5-5.1)
[2024-10-26] MEDS: IV D5/ 0.9% NACL 1,000 ML IV PRN (13:29)
[2024-10-26 17:57] LABS: ABG BASE EXCESS 3.9 mmol/L (-2.0-3.0); ABG OXYGEN SATURATION 92.8 % (94.0-98.0); ABG PCO2 39.2 mmHg (32.0-45.0); ABG PH 7.468 (7.350-7.450); ABG PO2 68.7 mmHg (83.0-108.0); COHb 0.3 % (0.5-1.5); MetHb 0.3 % (0.0-1.5); O2Hb 92.2 % (94.0-97.0); SITE, ABG RIGHT RADIAL
[2024-10-27] VITALS (25 sets, daily range): BP systolic 91–129; BP diastolic 66–93; TEMP 97.7–98.5; O2SAT 87–100
[2024-10-27] MEDS ORDERED: DIATR MEGLU/DIATRIZOATE SODIUM 120 ML BOTTLE (GASTROGRAPHIN) ONE (12:44)
[2024-10-27] MEDS: IV NS 0.9% 250 ML IV PRN (13:29)
[2024-10-28] VITALS (25 sets, daily range): BP systolic 93–136; BP diastolic 73–98; TEMP 97.7–98.8; O2SAT 89–100
[2024-10-28 05:01] LABS: HEMATOCRIT 37 % (33-45); LYMPHOCYTES # (AUTO) 0.3 K/uL (0.8-4.8); LYMPHOCYTES % (AUTO) 3.5 % (20.0-44.0); MEAN CORPUSCULAR HEMOGLOBIN 31 PG (26.0-33.0); MEAN CORPUSCULAR HGB CONC 32 g/dl (31.0-36.0); MEAN CORPUSCULAR VOLUME 94 fL (82-100); MONOCYTES # (AUTO) 0.5 K/uL (0.1-1.30); MONOCYTES % (AUTO) 5.8 % (2.0-12.0); NEUTROPHILS # (AUTO) 8.4 K/uL (1.8-8.9); NEUTROPHILS % (AUTO) 90.7 % (43.0-81.0); PLATELET COUNT (AUTO) 273 K/uL (150-450); RED BLOOD CELL COUNT(AUTO) 3.93 MIL/uL (4.0-5.2); RED CELL DISTRIBUTION WIDTH 13.8 % (11.5-15.0); WHITE BLOOD COUNT (AUTO) 9.3 K/uL (4.3-11.0)
[2024-10-28 05:22] LABS: CALCIUM, SERUM 8.4 mg/dL (8.5-10.1); CREATININE 0.4 mg/dL (0.6-1.3)
[2024-10-28 05:31] LABS: INR 1.05 (0.91-1.10); PARTIAL THROMBOPLASTIN TIME 22.7 SEC (24.3-34.3); PROTHROMBIN TIME 11.1 SECS (9.2-11.1)
[2024-10-28] MEDS: POTASSIUM CL. PREMIX PERIPHER. 50 ML IV SCH (06:13)
[2024-10-28] MEDS ORDERED: ANESTHESIA TRAY IN PYXIS 1 EA TRAY MC ONE (08:39)
[2024-10-28] MEDS: IV D5W 1,000 ML IV PRN (11:07)
[2024-10-29] VITALS (25 sets, daily range): BP systolic 95–133; BP diastolic 65–91; TEMP 97.7–98.3; O2SAT 95–100
[2024-10-29 03:51] LABS: CALCIUM, SERUM 8.3 mg/dL (8.5-10.1); CREATININE 0.4 mg/dL (0.6-1.3); MAGNESIUM 1.9 mg/dL (1.8-2.4); PHOSPHORUS 2.9 mg/dL (2.5-4.9); POTASSIUM 3.3 mmol/L (3.5-5.1)
[2024-10-29 04:02] LABS: THYROID STIMULATING HORMONE 4.3 uIU/mL (0.358-3.74); URIC ACID 2.4 mg/dL (2.6-7.2)
[2024-10-29] MEDS: POTASSIUM CL. PREMIX PERIPHER. 50 ML IV SCH (09:14)
[2024-10-30] VITALS (25 sets, daily range): BP systolic 93–118; BP diastolic 66–86; TEMP 97–98.5; O2SAT 94–100
[2024-10-30] MEDS ORDERED: POTASSIUM CL. PREMIX PERIPHER. 50 ML IV SCH (09:00)
[2024-10-31] VITALS (17 sets, daily range): BP systolic 89–123; BP diastolic 62–84; TEMP 97.3–97.8; O2SAT 94–100
[2024-10-31 04:45] LABS: BILIRUBIN,TOTAL 0.6 mg/dL (0.2-1.0); CALCIUM, SERUM 8.2 mg/dL (8.5-10.1); CREATININE 0.3 mg/dL (0.6-1.3); MAGNESIUM 1.7 mg/dL (1.8-2.4); PHOSPHORUS 3.2 mg/dL (2.5-4.9); POTASSIUM 3.4 mmol/L (3.5-5.1)
[2024-10-31 04:49] LABS: HEMATOCRIT 30 % (33-45); HEMOGLOBIN 10.3 g/dL (11.5-14.8); LYMPHOCYTES # (AUTO) 0.3 K/uL (0.8-4.8); LYMPHOCYTES % (AUTO) 3.3 % (20.0-44.0); MEAN CORPUSCULAR HEMOGLOBIN 32 PG (26.0-33.0); MEAN CORPUSCULAR HGB CONC 34 g/dl (31.0-36.0); MEAN CORPUSCULAR VOLUME 93 fL (82-100); MONOCYTES # (AUTO) 0.4 K/uL (0.1-1.30); MONOCYTES % (AUTO) 4.8 % (2.0-12.0); NEUTROPHILS # (AUTO) 7.8 K/uL (1.8-8.9); NEUTROPHILS % (AUTO) 91.9 % (43.0-81.0); PLATELET COUNT (AUTO) 212 K/uL (150-450); RED BLOOD CELL COUNT(AUTO) 3.24 MIL/uL (4.0-5.2); RED CELL DISTRIBUTION WIDTH 13.6 % (11.5-15.0); WHITE BLOOD COUNT (AUTO) 8.5 K/uL (4.3-11.0)
[2024-10-31] MEDS: Magnesium 1GM/D5W 100ML PREMIX 100 ML IV SCH (10:40)
[2024-10-31] MEDS: POTASSIUM CL. PREMIX PERIPHER. 50 ML IV SCH (10:41)
[2024-10-31] MEDS: IV 1/2NS 1000 ML 1,000 ML IV PRN (10:43)
[2024-11-01] VITALS (7 sets, daily range): BP systolic 99–116; BP diastolic 63–86; TEMP 97.3–98.4; O2SAT 94–100
[2024-11-01 08:11] LABS: CALCIUM, SERUM 8.1 mg/dL (8.5-10.1); CREATININE 0.3 mg/dL (0.6-1.3); MAGNESIUM 2.1 mg/dL (1.8-2.4); POTASSIUM 3.4 mmol/L (3.5-5.1)
[2024-11-01] MEDS: POTASSIUM CHLORIDE 20 MEQ POWDER PACKET PO SCH (10:39)
[2024-11-01] MEDS ORDERED: PRED50TA PO (12:41)
== END 2024-11-01 19:20 | disposition hospice, inpatient (51) | DRG 280 ==
LOC: ER 07:24 → ICU 13:09 → TELE1 10-31 13:14
PROVIDERS: ADMIT Student in an Organized Health Care Education/Training Program; ATTEND Internal Medicine
PROC: 5A09457 Assistance with Respiratory Ventilation, 24-96 Consecutive Hours, Continuous Positive Airway Pressure (ICD-10-PCS; principal; 2024-10-22)
PROC: 0W9B3ZX Drainage of Left Pleural Cavity, Percutaneous Approach, Diagnostic (ICD-10-PCS; 2024-10-24)
PROC: 5A09557 Assistance with Respiratory Ventilation, Greater than 96 Consecutive Hours, Continuous Positive Airway Pressure (ICD-10-PCS; 2024-10-27)
PROC: 0DJ08ZZ Inspection of Upper Intestinal Tract, Via Natural or Artificial Opening Endoscopic (ICD-10-PCS; 2024-10-28)
DX: I11.0 Hypertensive heart disease with heart failure (principal); E43 Unspecified severe protein-calorie malnutrition; I21.A1 Myocardial infarction type 2; J15.69 Pneumonia due to other Gram-negative bacteria; J96.21 Acute and chronic respiratory failure with hypoxia; J96.22 Acute and chronic respiratory failure with hypercapnia; I50.33 Acute on chronic diastolic (congestive) heart failure; G93.41 Metabolic encephalopathy; J90 Pleural effusion, not elsewhere classified; K31.1 Adult hypertrophic pyloric stenosis; Q21.10 Atrial septal defect, unspecified; E87.0 Hyperosmolality and hypernatremia; E87.3 Alkalosis; I31.39 Other pericardial effusion (noninflammatory); M48.54XA Collapsed vertebra, not elsewhere classified, thoracic region, initial encounter for fracture; C34.90 Malignant neoplasm of unspecified part of unspecified bronchus or lung; K56.609 Unspecified intestinal obstruction, unspecified as to partial versus complete obstruction; Z66 Do not resuscitate; Z79.51 Long term (current) use of inhaled steroids; Z79.82 Long term (current) use of aspirin; Z79.899 Other long term (current) drug therapy; Z87.09 Personal history of other diseases of the respiratory system; F09 Unspecified mental disorder due to known physiological condition; E78.5 Hyperlipidemia, unspecified; E87.6 Hypokalemia; E88.09 Other disorders of plasma-protein metabolism, not elsewhere classified; Z51.5 Encounter for palliative care; F03.90 Unspecified dementia, unspecified severity, without behavioral disturbance, psychotic disturbance, mood disturbance, and anxiety; I25.2 Old myocardial infarction; Y95 Nosocomial condition; Z74.09 Other reduced mobility; K22.89 Other specified disease of esophagus; K29.70 Gastritis, unspecified, without bleeding; K29.80 Duodenitis without bleeding; K31.84 Gastroparesis
CPT/HCPCS: 36415; 36600; 71045-TC; 71250-TC; 74018; 74250-TC; 80048-TC; 80053-TC; 80076-TC; 81001; 82803-TC; 83605-TC; 83735-TC; 84100-TC; 84443-TC; 84484-TC; 84550-TC; 85025-TC; 85610-TC; 85730-TC; 87040-TC; 87081-TC; 87086-TC; 87102-TC; 89051-TC; 92526; 92611-TC; 94660; 94760-TC; 94799-TC; 99082-TC; A4223; A6253; G0378; J1938; J1940; J2405; J2470; J2543; J2919; J3475; J3480; J3490; J7030; J7040; J7042; J7050; J7060; J7070; Q9963